=== PATIENT | female | born 1950 ===

== ENCOUNTER 2018-09-11 16:17 | Outpatient (CLI) | payer OTHER ==
[~2018-09-11] VITALS: Ht 170.2 cm; Wt 81.6 kg
== END 2018-09-11 16:25 | disposition home or self-care (01) ==
LOC: OFIC 805 16:17
DX: R49.0 Dysphonia (principal); R13.19 Other dysphagia; H92.03 Otalgia, bilateral

== ENCOUNTER 2018-10-19 12:27 | Outpatient (CLI) | payer OTHER ==
[~2018-10-19] VITALS: Ht 152.4 cm; Wt 77.1 kg
== END 2018-10-19 12:40 | disposition home or self-care (01) ==
LOC: OFIC 805 12:27
DX: R13.19 Other dysphagia (principal); R49.0 Dysphonia

== ENCOUNTER 2018-11-23 09:30 | Outpatient (CLI) | payer OTHER ==
[~2018-11-23] VITALS: Ht 152.4 cm; Wt 81.6 kg
== END 2018-11-23 09:45 | disposition home or self-care (01) ==
LOC: OFIC 805 09:30
DX: H92.03 Otalgia, bilateral (principal); R49.0 Dysphonia; R13.10 Dysphagia, unspecified

== ENCOUNTER 2018-12-14 12:09 | Outpatient (CLI) | payer OTHER ==
[~2018-12-14] VITALS: Ht 152.4 cm; Wt 81.6 kg
== END 2018-12-14 12:25 | disposition home or self-care (01) ==
LOC: OFIC 805 12:09
DX: J38.3 Other diseases of vocal cords (principal); R49.0 Dysphonia

== ENCOUNTER 2019-09-21 12:10 | Outpatient (CLI) | payer OTHER ==
[2019-09-21] MEDS ORDERED: CEPACOL SORE T1 EAC1 PO (13:08)
[2019-09-21] MEDS ORDERED: AZELASTINE137 MCG/0. NASAL (13:09)
[2019-09-21] MEDS ORDERED: SINGULAIR10 MG PO (13:09)
[2019-09-21] MEDS ORDERED: NEILMED SINUS1 EAC1 NASAL (15:04)
== END 2019-09-21 16:26 | disposition home or self-care (01) ==
LOC: OFIC 805 12:10
DX: J38.2 Nodules of vocal cords (principal); H92.03 Otalgia, bilateral; R09.81 Nasal congestion

== ENCOUNTER → 2019-10-21 | Outpatient (CLI) | payer OTHER ==
[~2019-10-21] MED LIST: AZELASTINE137 MCG/0. NASAL; CEPACOL SORE T1 EAC1 PO; NEILMED SINUS1 EAC1 NASAL; PEPCID AC20 MG PO; PRILOSEC OTC20 MG PO; SINGULAIR10 MG PO
== END | disposition home or self-care (01) ==
LOC: OFIC 805 10:23
DX: R49.0 Dysphonia (principal); R13.19 Other dysphagia; R09.81 Nasal congestion; K21.0 Gastro-esophageal reflux disease with esophagitis

== ENCOUNTER 2019-12-02 08:56 | Outpatient (CLI) | payer OTHER ==
[2019-12-02] MEDS ORDERED: AZELASTINE137 MCG/0. NASAL (10:28)
[2019-12-02] MEDS ORDERED: SINGULAIR10 MG PO (10:28)
[2019-12-02] MEDS ORDERED: PEPCID AC20 MG PO (10:28)
[2019-12-02] MEDS ORDERED: PRILOSEC OTC20 MG PO (10:29)
== END 2019-12-02 11:00 | disposition home or self-care (01) ==
LOC: OFIC 805 08:56
PROVIDERS: ATTEND Otolaryngology
DX: K21.0 Gastro-esophageal reflux disease with esophagitis (principal); R09.81 Nasal congestion; R13.19 Other dysphagia; J38.3 Other diseases of vocal cords; R49.0 Dysphonia

== ENCOUNTER 2020-02-02 11:07 | Outpatient (CLI) | payer OTHER | END 2020-02-02 12:00 | disposition home or self-care (01) | LOC: OFIC 805 11:07 | PROVIDERS: ATTEND Otolaryngology | DX: R09.81 Nasal congestion (principal); H92.03 Otalgia, bilateral; R13.19 Other dysphagia; J34.89 Other specified disorders of nose and nasal sinuses ==

== ENCOUNTER 2020-03-30 12:35 | Outpatient (CLI) | payer OTHER | END 2020-03-30 13:00 | disposition home or self-care (01) | LOC: OFIC 805 12:35 | PROVIDERS: ATTEND Otolaryngology | DX: R42 Dizziness and giddiness (principal) ==

== ENCOUNTER → 2020-05-09 | Outpatient (CLI) | payer OTHER | END | disposition home or self-care (01) | LOC: OFIC 805 09:24 | PROVIDERS: ATTEND Otolaryngology | DX: R42 Dizziness and giddiness (principal); K21.00 Gastro-esophageal reflux disease with esophagitis, without bleeding; R09.82 Postnasal drip; J38.3 Other diseases of vocal cords ==

== ENCOUNTER → 2020-06-21 | Outpatient (CLI) | payer OTHER | END | disposition home or self-care (01) | LOC: OFIC 805 11:45 | PROVIDERS: ATTEND Otolaryngology | DX: K21.00 Gastro-esophageal reflux disease with esophagitis, without bleeding (principal); R13.19 Other dysphagia; M54.2 Cervicalgia ==

== ENCOUNTER 2020-07-19 11:29 | Outpatient (CLI) | payer OTHER | END 2020-07-19 14:43 | disposition home or self-care (01) | LOC: OFIC 805 11:29 | PROVIDERS: ATTEND Otolaryngology | DX: M54.2 Cervicalgia (principal); R09.82 Postnasal drip; R42 Dizziness and giddiness ==